=== PATIENT | female | born 1960 | race American Indian/Alaskan Native ===

== ENCOUNTER 2016-12-13 09:13 | Outpatient (CLI) | payer OTHER ==
--- NOTE | 2016-12-13 12:37 | Cat Scan Report ---
CT ABDOMEN AND PELVIS WITH CONTRAST INDICATION: Abdominal, umbilical pain. COMPARISON: 11/28/2010. FINDINGS: Abdomen and pelvis CT performed following oral contrast and intravenous administration of 100 cc of Omnipaque 300. LUNG BASES: Nonspecific distal esophageal wall thickening, not excluded for gastroesophageal reflux and/or hiatal hernia, amongst others. ABDOMEN: Interval ventral wall mesh hernia repair. IVC now flattened with hypovolemia not excluded. Liver, spleen, gallbladder, pancreas, adrenals, nonaneurysmal abdominal aorta and kidneys appear within normal limits bilaterally without hydronephrosis, ascites or size significant adenopathy. Stable fat at the umbilicus with a transverse neck of 1.2 cm. Opacified GI tract nonobstructive. Normal appendix. Mild distal descending colon diverticulosis. PELVIS: Mild sigmoid diverticulosis without acute inflammation. Uterus again surgically absent. Unremarkable urinary bladder and nonopacified rectum. No free fluid or significant adenopathy. Mild spinal degenerative changes as spurring, L4-L5 facet arthropathy and L5-S1 disc narrowing with vacuum phenomenon. CONCLUSION: Interval anterior abdominal wall mesh hernia repair since November 2010 with few other findings, as above. Please correlate. Thank you for the opportunity to participate in this patient's care.
== END 2016-12-13 09:14 | disposition home or self-care (01) ==
LOC: CT 09:13
PROVIDERS: ATTEND Surgery
DX: K57.30 Diverticulosis of large intestine without perforation or abscess without bleeding (principal); M12.88 Other specific arthropathies, not elsewhere classified, other specified site; Z90.710 Acquired absence of both cervix and uterus
CPT/HCPCS: 74177; Q9967

== ENCOUNTER 2017-11-12 11:18 | Outpatient (CLI) | payer OTHER ==
--- NOTE | 2017-11-12 12:06 | XRay Report ---
CHEST 2 VIEWS INDICATION: Acute bronchitis. COMPARISON: None similar. FINDINGS: PA and lateral chest radiographs demonstrate normal cardiomediastinal silhouette. Clear lungs. Mild thoracic scoliosis and spinal degenerative spurring at few levels. CONCLUSION: No acute disease in the chest. Thank you for the opportunity to participate in this patient's care.
== END 2017-11-12 11:19 | disposition home or self-care (01) ==
LOC: XRAY 11:18
PROVIDERS: ATTEND Internal Medicine
DX: J20.9 Acute bronchitis, unspecified (principal); M41.84 Other forms of scoliosis, thoracic region; M53.84 Other specified dorsopathies, thoracic region; Z79.899 Other long term (current) drug therapy
CPT/HCPCS: 71046

== ENCOUNTER 2019-07-23 09:32 | Outpatient (CLI) | payer OTHER ==
--- NOTE | 2019-07-26 13:14 | Mammography Report ---
DIGITAL SCREENING MAMMOGRAM WITH CAD, 07/23/2019 INDICATION: Routine screening mammography. TECHNIQUE: Digital bilateral 2D mammography was obtained in the craniocaudal and mediolateral obliq ue projections. This examination was interpreted with the benefit of Computer-Aided Detection analysi s. COMPARISON: 07/20/2018 FINDINGS: Breast Density: The breasts are heterogeneously dense, which may obscure small masses. There is no evidence of dominant mass, suspicious calcifications or architectural distortion in eithe r breast. IMPRESSION: No mammographic evidence of malignancy. Follow up recommendation: Routine yearly BI-RADS Category 1: Negative. A "normal" or negative report should not discourage follow up or biopsy of a clinically significant f inding. A written summary of these findings will be mailed to the patient. The patient will be entered into a mammography reporting system which will generate a reminder letter for the patient's next appointmen t at the appropriate interval. The [employer] recommends yearly mammograms starting at age 40 and continuing as l irchi as a woman is in good health. Breast MRI is recommended for women with an approximate 20-25% or greater lifetime risk of breast cancer, including women with a strong family history of breast or ova maikol cancer or who have been treated for Hodgkin's disease. Signer Name: Steven Abreu MD Signed: 07/26/2019 1:09 PM Workstation Name: [id number]
== END 2019-07-23 09:33 | disposition home or self-care (01) ==
LOC: SPVWC 09:32
PROVIDERS: ATTEND Family Medicine
DX: Z12.31 Encounter for screening mammogram for malignant neoplasm of breast (principal)
CPT/HCPCS: 77067

== ENCOUNTER 2020-08-08 15:23 | Outpatient (CLI) | payer OTHER ==
--- NOTE | 2020-08-09 07:26 | Mammography Report ---
DIGITAL SCREENING MAMMOGRAM WITH CAD, 08/08/2020 CLINICAL INFORMATION / INDICATION: Routine screening mammography. TECHNIQUE: Digital bilateral 2D mammography was obtained in the craniocaudal and mediolateral obliqu e projections. This examination was interpreted with the benefit of Computer-Aided Detection analysis . COMPARISON: 07/23/2019 FINDINGS: Breast Density: There are scattered areas of fibroglandular density. No dominant mass, suspicious calcifications, or architectural distortion in either breast. IMPRESSION: No mammographic evidence of malignancy. Follow up recommendation: Routine yearly BI-RADS Category 1: Negative. A "normal" or negative report should not discourage follow up or biopsy of a clinically significant f inding. A written summary of these findings will be mailed to the patient. The patient will be entered into a mammography reporting system which will generate a reminder letter for the patient's next appointmen t at the appropriate interval. The [employer] recommends yearly mammograms starting at age 40 and continuing as l richi as a woman is in good health. Breast MRI is recommended for women with an approximate 20-25% or greater lifetime risk of breast cancer, including women with a strong family history of breast or ova maikol cancer or who have been treated for Hodgkin's disease. Signer Name: Rafita Guardado MD Signed: 08/09/2020 7:22 AM Workstation Name: [id number]
== END 2020-08-08 15:24 | disposition home or self-care (01) ==
LOC: SPVWC 15:23
PROVIDERS: ATTEND Family Medicine
DX: Z12.31 Encounter for screening mammogram for malignant neoplasm of breast (principal)
CPT/HCPCS: 77067

== ENCOUNTER 2021-08-09 11:42 | Outpatient (CLI) | payer OTHER ==
--- NOTE | 2021-08-09 16:03 | Mammography Report ---
DIGITAL SCREENING MAMMOGRAM WITH CAD, 08/09/2021 CLINICAL INFORMATION / INDICATION: Routine screening mammography. SCREENING MAMMO Z12.31 TECHNIQUE: Digital bilateral 2D mammography was obtained in the craniocaudal and mediolateral obliqu e projections. This examination was interpreted with the benefit of Computer-Aided Detection analysis . COMPARISON: 05/27/2014 through 08/08/2020. FINDINGS: Breast Density: The breasts are heterogeneously dense, which may obscure small masses. No dominant mass, suspicious calcifications, or architectural distortion in either breast. Asymmetric rest tissue and benign-appearing nodularity in the right upper outer quadrant are stable. IMPRESSION: No mammographic evidence of malignancy. Follow up recommendation: Routine yearly BI-RADS Category 2: BENIGN. A "normal" or negative report should not discourage follow up or biopsy of a clinically significant f inding. A written summary of these findings will be mailed to the patient. The patient will be entered into a mammography reporting system which will generate a reminder letter for the patient's next appointmen t at the appropriate interval. The [employer] recommends yearly mammograms starting at age 40 and continuing as l richi as a woman is in good health. Breast MRI is recommended for women with an approximate 20-25% or greater lifetime risk of breast cancer, including women with a strong family history of breast or ova maikol cancer or who have been treated for Hodgkin's disease. Signer Name: Gil Mattson MD Signed: 08/09/2021 3:58 PM Workstation Name: [id number]
== END 2021-08-09 11:43 | disposition home or self-care (01) ==
LOC: SPVWC 11:42
PROVIDERS: ATTEND Family Medicine
DX: Z12.31 Encounter for screening mammogram for malignant neoplasm of breast (principal); N64.89 Other specified disorders of breast
CPT/HCPCS: 77067